=== PATIENT | female | born 1985 | race Caucasian/White ===

== ENCOUNTER → 2019-11-09 14:43 | Outpatient (BNVA) | payer OTHER, MEDICAID, SELFPAY | PROVIDERS: Family Provider Family Medicine; PCP Urology; Visit Provider Nurse Practitioner Family | DX: N99.89 Other postprocedural complications and disorders of genitourinary system (principal) | CPT/HCPCS: 81001; 87086 ==

== ENCOUNTER 2019-11-12 14:09 | Outpatient (CLI) | payer OTHER, MEDICAID, SELFPAY ==
--- NOTE | 2019-11-12 14:14 | USCV_ITS ---
Sumaya Bowling Age: 34 Gender: F : 1985 Exam Date: 11/12/2019 14:46 Ordering Phys: Ramiro Greenwood MD Technologist: Nhung Camacho [place] [facility] [place]: CARDIOMYOPATHY BP: 96 / 63 HR: 82 Rhythm: Sinus Technical Quality: Fair MEASUREMENTS (Male / Female) Normal Values 2D ECHO LV Diastolic Diameter PLAX 4.6 cm 4.2 - 5.9 / 3.9 - 5.3 cm LV Systolic Diameter PLAX 2.9 cm IVS Diastolic Thickness 0.6 cm 0.6 - 1.0 / 0.6 - 0.9 cm IVS Systolic Thickness 1.2 cm LVPW Diastolic Thickness 0.7 cm 0.6 - 1.0 / 0.6 - 0.9 cm LVPW Systolic Thickness 1.1 cm LVOT Diameter 2.0 cm LV Ejection Fraction 2D Teich 65.1 % LA Diameter 2.4 cm LA Width 2.5 cm LA Height 3.4 cm RA Width 3.2 cm RA Height 4.1 cm Aorta at Sinotubular Diameter 2.7 cm M-MODE LV Diastolic Diameter MM 3.8 cm 4.2 - 5.9 / 3.9 - 5.3 cm LV Systolic Diameter MM 2.4 cm LV Ejection Fraction MM Teich 68.1 % IVS Diastolic Thickness MM 0.9 cm 0.6 - 1.0 / 0.6 - 0.9 cm IVS Systolic Thickness MM 1.2 cm LVPW Diastolic Thickness MM 0.9 cm 0.6 - 1.0 / 0.6 - 0.9 cm LVPW Systolic Thickness MM 1.1 cm Aortic Annulus Diameter 2.5 cm LA Ao Ratio MM 1.0 MV E Point Septal Separation 0.4 cm DOPPLER AV Peak Velocity 111.0 cm/s LVOT Peak Velocity 69.0 cm/s AV Area Cont Eq vti 2.4 cm squared AV Area Cont Eq pk 2.0 cm squared MV Area PHT 3.9 cm squared Mitral E to A Ratio 1.1 MV E' Velocity 13.0 cm/s Mitral E to MV E' Ratio 5.3 Mitral E to LV E' Lateral Ratio 4.5 Mitral E to LV E' Septal Ratio 6.3 TV Peak E Velocity 56.0 cm/s PV Peak Velocity 73.0 cm/s RV Acceleration Time 0.1 s RV Ejection Time 0.3 s RV AcT/ET 0.4 FINDINGS Left Ventricle Normal left ventricular size, systolic function and wall thickness, with no regional wall motion abnormalities. Normal left ventricular wall thickness. Normal diastolic filling pattern. Left ventricular ejection fraction is estimated at 60 %. Right Ventricle The right ventricle is normal in size and function. Right Atrium The right atrium is normal in size. Left Atrium The left atrium is normal in size. Mitral Valve Structurally normal mitral valve without significant stenosis or prolapse. There is no mitral regurgitation. Aortic Valve Structurally normal aortic valve without significant sclerosis or stenosis. There is no aortic regurgitation. Tricuspid Valve Structurally normal tricuspid valve without significant stenosis or regurgitation. Pulmonary artery systolic pressure is normal. Pulmonic Valve Structurally normal pulmonic valve without significant stenosis. There is no pulmonic regurgitation. Pericardium Normal pericardium without effusion. Aorta Normal ascending aorta dimension. CONCLUSIONS Normal transthoracic echocardiogram. No significant change since the prior echocardiogram study of 10/10/18 Dr. Aaron Rob MD (Electronically Signed) Final Date: 12 November 2019 18:16 S
== END 2019-11-12 14:10 | disposition home or self-care (01) ==
LOC: RAD 14:09
PROVIDERS: Family Provider Family Medicine; Visit Provider Family Medicine
DX: I42.9 Cardiomyopathy, unspecified (principal)
CPT/HCPCS: 93306

== ENCOUNTER 2020-01-28 15:49 | Outpatient (CLI) | payer OTHER, MEDICAID, SELFPAY ==
[2020-01-28 15:50] VITALS: BP 106/67; PULSE 78; RESP 16; TEMP 36.8; O2SAT 96
[2020-01-28] MEDS: denosumab 60 mg SDV SUBCUT (16:04)
--- NOTE | 2020-01-28 16:06 | PC.NURSE ---
COVID 19 screening questions negative.
[2020-01-28 16:15] VITALS: BP 106/65; PULSE 73; RESP 16; TEMP 36.8
== END 2020-01-28 15:50 | disposition home or self-care (01) ==
LOC: RHEOACUTE 15:50
PROVIDERS: Family Provider Family Medicine; PCP Urology; Visit Provider Internal Medicine Rheumatology
DX: M81.0 Age-related osteoporosis without current pathological fracture (principal)
CPT/HCPCS: 96372; J0897

== ENCOUNTER 2020-08-11 14:55 | Outpatient (CLI) | payer OTHER, MEDICAID, SELFPAY ==
--- NOTE | 2020-08-11 15:12 | XR_ITS ---
WS: [id number] DEXA (DUAL ENERGY X-RAY ABSORPTIOMETRY) Bone mineral density was performed using a [employer] machine. HISTORY: AGE RELATED OSTEOPOROSIS WITHOUT CURRENT PATHOLOGICAL FRACTURE COMPARISON: 04/15/2018 Lumbar spine BMD (L1-L4): 1.136 g/cm2 T score: -0.4 Z score: -0.2 Total hip BMD: Left: 0.735 g/cm2. T score: -2.2 Z score: -2.0 Right: 0.788 g/cm2. T score: -1.7 Z score: -1.5 Compared to the prior study from 04/15/2018. Lumbar spine bone mineral density has decreased by 2.2%. Bilateral hips bone mineral density has increased by 2.1%. XR/XR DEXA axial skeleton* [id number] IMPRESSION: OSTEOPENIA based upon the WHO classification for females. Significant decrease in bone mineral density in the lumbar spine since the prio r study.
== END 2020-08-11 14:56 | disposition home or self-care (01) ==
LOC: RADWPI 14:59
PROVIDERS: Family Provider Family Medicine; PCP Urology; Visit Provider Internal Medicine Endocrinology, Diabetes & Metabolism
DX: M81.0 Age-related osteoporosis without current pathological fracture (principal); M85.88 Other specified disorders of bone density and structure, other site
CPT/HCPCS: 77080

== ENCOUNTER 2020-12-07 14:50 | Outpatient (CLI) | payer OTHER, MEDICAID, SELFPAY ==
[2020-12-07 15:15] VITALS: BP 108/65; PULSE 71; RESP 16; TEMP 36.5; O2SAT 96
[2020-12-07] MEDS: denosumab 60 mg SDV SUBCUT (15:15)
== END 2020-12-07 14:51 | disposition home or self-care (01) ==
PROVIDERS: PCP Family Medicine; Visit Provider Internal Medicine Medical Oncology
DX: M81.0 Age-related osteoporosis without current pathological fracture (principal)
CPT/HCPCS: 96372; J0897

== ENCOUNTER 2021-06-12 13:04 | Outpatient (CLI) | payer OTHER, MEDICAID, SELFPAY ==
[2021-06-12 13:14] VITALS: BP 110/64; PULSE 85; RESP 20; TEMP 37.2; O2SAT 96
[2021-06-12] MEDS: denosumab 60 mg SDV SUBCUT (13:21)
== END 2021-06-12 13:05 | disposition home or self-care (01) ==
LOC: ONCMED 13:09
PROVIDERS: PCP Family Medicine; Visit Provider Family Medicine
DX: M81.0 Age-related osteoporosis without current pathological fracture (principal); Z79.899 Other long term (current) drug therapy
CPT/HCPCS: 96372; J0897

== ENCOUNTER 2021-08-29 14:29 | Outpatient (CLI) | payer OTHER, MEDICAID, SELFPAY ==
--- NOTE | 2021-08-29 14:32 | XR_ITS ---
WS: [id number] SCREENING DEXA SCAN PV [employer] CLINICAL INFORMATION: AGE-RELATED OSTEOPOROSIS WITHOUT CURREN,VITAMIN D DEFICIENCY COMPARISON: August 11, 2020 FINDINGS: The L1-L4 bone mineral density measures 1.222 g/cm2. This corresponds to a T score score of 0.3 and Z score of 0.2. Left femoral neck bone mineral density measures 0.765 g/cm2. This corresponds to a T score of -1.9 an d Z score of -1.9. Right femoral neck bone mineral density measures 0.796 g/cm2. This corresponds to a T score -1.7of an d Z score of -1.7. Mean femoral neck bone mineral density measures 0.780 g/cm2. This corresponds to a T score of -1.8 an d Z score of -1.8. XR/XR DEXA axial skeleton* [id number] IMPRESSION: 1. Osteopenia in the femoral necks. Normal bone mineralization in the lumbar s pine. 2. Bone mineralization in the lumbar spine and femoral necks has increased com pared to previous FRAX values not calculated due to patient's age
== END 2021-08-29 14:30 | disposition home or self-care (01) ==
PROVIDERS: PCP Family Medicine; Visit Provider Nurse Practitioner Family
DX: M81.0 Age-related osteoporosis without current pathological fracture (principal); E55.9 Vitamin D deficiency, unspecified; M85.88 Other specified disorders of bone density and structure, other site
CPT/HCPCS: 77080

== ENCOUNTER 2023-08-30 15:27 | Outpatient (CLI) | payer OTHER, MEDICAID, SELFPAY ==
--- NOTE | 2023-08-30 15:39 | XR_ITS ---
WS: [id number] DEXA (DUAL ENERGY X-RAY ABSORPTIOMETRY) Bone mineral density was performed using a [employer] machine. HISTORY: Osteoposis COMPARISON: None available. Left forearm BMD: 0.808 g/cm2. T score: -0.8 Z score: -0.8 Total hip BMD: Left: 0.745 g/cm2. T score: -2.1 Z score: -1.7 Right: 0.750 g/cm2. T score: -2.0 Z score: -1.7 IMPRESSION: OSTEOPENIA based upon the WHO classification for females.
== END 2023-08-30 15:28 | disposition home or self-care (01) ==
LOC: RAD 15:27
PROVIDERS: PCP Family Medicine; Visit Provider Family Medicine
DX: M81.0 Age-related osteoporosis without current pathological fracture (principal); M85.80 Other specified disorders of bone density and structure, unspecified site
CPT/HCPCS: 77080

== ENCOUNTER 2024-01-27 09:55 | Outpatient (CLI) | payer OTHER, MEDICAID, SELFPAY ==
--- NOTE | 2024-01-27 10:15 | USCV_ITS ---
Sumaya Bowling Age: 38 Gender: F : 1985 Exam Date: 01/27/2024 10:11 Ordering Phys: Ramiro Greenwood MD Technologist: TOMÁS [place] [facility] [place]: history of chemo, BP: / HR: 148 Rhythm: Sinus Technical Quality: Adequate MEASUREMENTS (Male / Female) Normal Values 2D ECHO LV Diastolic Diameter PLAX 4.2 cm 4.2 - 5.9 / 3.9 - 5.3 cm IVS Diastolic Thickness 0.6 cm 0.6 - 1.0 / 0.6 - 0.9 cm IVS Systolic Thickness 1.1 cm LVPW Diastolic Thickness 0.7 cm 0.6 - 1.0 / 0.6 - 0.9 cm LVPW Systolic Thickness 1.9 cm LVOT Diameter 1.9 cm LV Ejection Fraction 2D Teich 87.7 % LV Ejection Fraction MOD 2C 65.4 % LV Ejection Fraction 2C AL 67.0 % LA Diameter 1.7 cm RA Systolic Volume 4C AL 15.8 ml RA Systolic Volume 4C MOD 16.1 ml Aorta at Sinotubular Diameter 2.5 cm IVC Diameter 1.2 cm M-MODE LA Ao Ratio MM 0.8 AV Cusp Separation MM 1.8 cm DOPPLER AV Peak Velocity 114.0 cm/s LVOT Peak Velocity 91.0 cm/s AV Area Cont Eq vti 2.7 cm squared AV Area Cont Eq pk 2.3 cm squared MV Peak Velocity 81.0 cm/s MV Area PHT 2.8 cm squared Mitral E to A Ratio 1.1 TV Peak Velocity 113.3 cm/s TR Peak Velocity 146.0 cm/s TR Peak Gradient 8.5 mmHg TR Mean Velocity 87.0 cm/s TR Mean Gradient 3.5 mmHg TR Velocity Time Integral 21.8 cm Right Atrial Pressure 3.0 mmHg Pulmonary Artery Systolic Pressu 11.5 mmHg PV Peak Velocity 67.0 cm/s RV Ejection Time 0.3 s FINDINGS Left Ventricle Normal LV size ejection fraction of 67%.no regional wall motion abnormalities. Right Ventricle Normal RV size and ejection fraction Right Atrium The right atrium is normal in size. Left Atrium The left atrium is normal in size. Mitral Valve Trace mitral valve regurgitation. Aortic Valve No gross abnormalities noted Tricuspid Valve Trace tricuspid valve regurgitation. Pulmonic Valve No gross abnormalities noted Pericardium Normal pericardium without effusion. Aorta Normal ascending aorta dimension. IVC The inferior vena cava appears normal. CONCLUSIONS Normal LV size ejection fraction of 67%. No regional wall motion abnormalities. Trace of mitral and tricuspid regurgitation . There is no pericardial effusion. There are no intracardiac masses. Compared to the study from 11/12/2019, there may not be a significant change Dr Mari Justin MD [facility] (Electronically Signed) Final Date: 27 January 2024 17:12 S
== END 2024-01-27 09:56 | disposition home or self-care (01) ==
LOC: RAD 09:55
PROVIDERS: PCP Family Medicine; Visit Provider Family Medicine
DX: Z92.21 Personal history of antineoplastic chemotherapy (principal)
CPT/HCPCS: 93306

== ENCOUNTER 2024-06-12 10:49 | Oncology outpatient (recurring) (ONCR) | payer OTHER, MEDICAID, SELFPAY ==
[2024-06-12 11:14] VITALS: BP 111/74; PULSE 85; RESP 16; TEMP 36.2; O2SAT 99
[2024-06-12] MEDS: denosumab 60 mg SDV SUBCUT (11:23)
== END 2024-07-04 23:55 | disposition home or self-care (01) ==
PROVIDERS: PCP Family Medicine; Visit Provider Family Medicine
DX: M81.0 Age-related osteoporosis without current pathological fracture (principal); Z79.899 Other long term (current) drug therapy
CPT/HCPCS: 96372; J0897

== ENCOUNTER 2025-01-14 13:17 | Oncology outpatient (recurring) (ONCR) | payer OTHER, MEDICAID, SELFPAY ==
[2025-01-14] MEDS: denosumab 60 mg SDV SUBCUT (14:52)
== END 2025-02-01 23:59 | disposition home or self-care (01) ==
LOC: ONCMED 13:21
PROVIDERS: PCP Family Medicine; Visit Provider Family Medicine
DX: M81.0 Age-related osteoporosis without current pathological fracture (principal); Z79.899 Other long term (current) drug therapy
CPT/HCPCS: 96372; J0897

== ENCOUNTER 2025-07-13 14:14 | Oncology outpatient (recurring) (ONCR) | payer OTHER, MEDICAID, SELFPAY ==
[2025-07-13] MEDS: denosumab 60 mg SDV (Infusion Clinic Only) SUBCUT (14:51)
== END 2025-08-03 23:59 | disposition home or self-care (01) ==
PROVIDERS: PCP Family Medicine; Visit Provider Family Medicine
DX: M81.0 Age-related osteoporosis without current pathological fracture (principal); Z79.899 Other long term (current) drug therapy
CPT/HCPCS: 96372; J0897